=== PATIENT | female | born 1965 | race Caucasian/White ===

== ENCOUNTER → 2020-06-28 10:58 | Outpatient (BNVA) | payer MEDICAID, SELFPAY | PROVIDERS: PCP Student in an Organized Health Care Education/Training Program; Visit Provider Physician Assistant | DX: Z13.89 Encounter for screening for other disorder (principal) | CPT/HCPCS: Q3014 ==

== ENCOUNTER 2020-09-24 10:23 | Day surgery (SDC) | payer OTHER, SELFPAY ==
--- NOTE | 2020-09-21 08:36 | P.CONAN_ITS ---
Documented by User: Macy Guidry 09/21/20 08:37 HPI - Anesthesia Eval Consult details Narrative: 55yo F for Colonoscopy Pulmonary cleared - No exacerbations or prednisone use since April as of 07/2020 O2 dependant PMFSH Active Problems Active Problems: All Active Problems (Updated 07/23/20 @ 09:01 by Macy Guidry) Hematuria (Acute) Abdominal pain (Acute) Past Medical History Medical History Abdominal pain Anxiety and depression Emphysema lung Hx-TIA (transient ischemic attack) Lung cancer Memory deficit Oxygen dependent Family History Family History Mother Heart disease Paternal Grandfather Brain cancer Paternal Grandmother Stomach cancer Father Emphysema lung Surgical History Surgical History H/O tubal ligation History of bronchoscopy Social History Social History Household Members: Significant Other Are you a primary healthcare architect to a significant other at home: No Do you presently have visiting nurse or other home services: No Alcohol intake: current Alcohol intake frequency: holidays/special occasions only Alcohol type: hard liquor Patient Tobacco Use Status: Former Tobacco user Quit Date: 2019 Use of substances other than those prescribed or required for medical reasons: No Are you DNR?: No Advance Directives: No Advance Directives Information Provided: Yes Current occupational status: disabled Meds Allergies Allergy/AdvReac Type Severity Reaction Status Date / Time bupropion [From Wellbutrin] Allergy Severe Rash and Verified 09/24/20 11:09 swelling Home Medications Medication Instructions Recorded Confirmed Last Taken Type fluticasone furoate 200 1 inh INHALATION DAILY 06/28/20 07/18/20 09/24/20 08:30 History mcg-vilanterol 25 mcg/dose inhalation powder hydroxyzine HCl 25 mg tablet 25 mg PO Q4H tab 06/28/20 07/18/20 Unknown History tiotropium bromide 18 mcg capsule 1 cap INHALATION DAILY 06/28/20 07/18/20 Unknown History with inhalation device albuterol sulfate 2 puff INHALATION Q4-6H PRN 07/18/20 07/18/20 Unknown History loratadine 1 tab PO DAILY 07/18/20 07/18/20 Unknown History sertraline 1 tab PO DAILY 07/18/20 07/18/20 Unknown History varenicline [Chantix Starting 1 tab PO DIRECTED 07/18/20 07/18/20 Unknown History Month Box] Exam Exam Date and Time: September 21, 2020 0836 Assessment and Plan Assessment Anesthesia Assessment: Chart Reviewed Documented by User: Christina Meyer 09/24/20 11:53 [facility] Past Medical History Medical History Abdominal pain Anxiety and depression Emphysema lung Hx-TIA (transient ischemic attack) Lung cancer Memory deficit Oxygen dependent Family History Family History Mother Heart disease Paternal Grandfather Brain cancer Paternal Grandmother Stomach cancer Father Emphysema lung Surgical History Surgical History H/O tubal ligation History of bronchoscopy Social History Social History Household Members: Significant Other Are you a primary healthcare architect to a significant other at home: No Do you presently have visiting nurse or other home services: No Alcohol intake: current Alcohol intake frequency: holidays/special occasions only Alcohol type: hard liquor Patient Tobacco Use Status: Former Tobacco user Quit Date: 2019 Use of substances other than those prescribed or required for medical reasons: No Are you DNR?: No Advance Directives: No Advance Directives Information Provided: Yes Current occupational status: disabled Meds Allergies Allergy/AdvReac Type Severity Reaction Status Date / Time bupropion [From Wellbutrin] Allergy Severe Rash and Verified 09/24/20 11:09 swelling Home Medications Medication Instructions Recorded Confirmed Last Taken Type fluticasone furoate 200 1 inh INHALATION DAILY 06/28/20 07/18/20 09/24/20 08:30 History mcg-vilanterol 25 mcg/dose inhalation powder hydroxyzine HCl 25 mg tablet 25 mg PO Q4H tab 06/28/20 07/18/20 Unknown History tiotropium bromide 18 mcg capsule 1 cap INHALATION DAILY 06/28/20 07/18/20 Unknown History with inhalation device albuterol sulfate 2 puff INHALATION Q4-6H PRN 07/18/20 07/18/20 Unknown History loratadine 1 tab PO DAILY 07/18/20 07/18/20 Unknown History sertraline 1 tab PO DAILY 07/18/20 07/18/20 Unknown History varenicline [Chantix Starting 1 tab PO DIRECTED 07/18/20 07/18/20 Unknown History Month Box] Exam Airway Mallampati Class: II TM Dist: >3cm Neck ROM: Full Heart: RRR Lungs: diminished thriughout Assessment and Plan Assessment Anesthesia Assessment: Anesthesia Plan Discussed and Chart Reviewed Final Anesthetic Review NPO: Yes ASA Class: III Final Preanesthetic Review: Meds/Allgs Chart Reviewed, Consent Obtained/Reviewed and Anes Risks/Benef Reviewed Patient Risk: Intermediate Procedure Risk: Low Anesthetic Plan Anesthetic Plan: MAC: Disposition: Standard PACU
[2020-09-24 10:41] VITALS: BP 107/38; PULSE 80; RESP 20; TEMP 36.5; O2SAT 95; BMI 21.6
[2020-09-24] MEDS: Lactated Ringers 1,000 ML 100 ML IVCONT (11:10)
--- NOTE | 2020-09-24 11:51 | W.PM.OPN ---
Operative Note Operative Note Date of Service: 09/24/20 Narrative: Pre-op diagnosis: Colon cancer screening, GERD, abdominal pain Post-op diagnosis: other (GERD, Gastritis, gastric polyp, diverticulosis) Procedure: FLEXIBLE TRANSORAL UPPER GASTROINTESTINAL ENDOSCOPY WITH BIOPSIES AND COLONOSCOPY TILL CECUM WITH BIOPSIES UPPER ENDOSCOPY Consent: Indications for the procedure and potential complications of bleeding, perforation, reaction to medications and missed diagnosis were discussed with the patient and informed consent was obtained. Instrument: Olympus GIF H 190 mid size upper endoscope Monitoring: Vital signs and clinical assessment, continuous EKG monitoring, Pulse oximetry, Carbon Dioxide monitoring and blood pressure monitoring were done throughout the procedure. Procedure: The patient was placed in the left lateral decubitis position and pre-procedure medications were administered and a bite block was placed. The endoscope was inserted into the mouth and advanced under direct vision to the third part of duodenum. A careful inspection was made as the upper endoscope was withdrawn including a retroflexed examination of the proximal stomach; Findings and interventions are described below. Findings: Larynx: Normal Esophagus: GE junction at 40 cms. Minimal focal esophagitis at GE junction. A 1 cms tongue of suspected Merida's - biopsied. Stomach: A few 4-5 mm benign appearing polyps in the gastric fundus - one removed with cold bx. Mild gastric erythema. Biopsies were obtained. Grade 2 flap valve on retroflexed examination of the cardia. Duodenum: Normal bulb and descending duodenum. Biopsies were obtained from 3rd part duodenum to check of celiac sprue Intervention: Biopsies as noted above COLONOSCOPY PROCEDURE NOTE Consent: Indications for the procedure and potential complications of bleeding, perforation, reaction to medications and missed diagnosis were discussed with the patient and informed consent was obtained. Instrument: Olympus PCF H 190 L variable stiffness pediatric colonoscope Monitoring: Vital signs and clinical assessment, intermittent blood pressure monitoring, continuous EKG monitoring, Pulse oximetry and Carbon Dioxide monitoring were done throughout the procedure. Colon withdrawl time was 18 minutes. Procedure: The patient was placed in the left lateral decubitis position and pre-procedure medications were administered. After a digital rectal examination of the ano-rectum, the video colonoscope was inserted into the rectum and advanced through the colon to the cecum. The colonoscope was slowly withdrawn in a retrograde panoramic fashion and the colon mucosa was carefully examined including a retroflexed view of the rectum. Findings and interventions are described below. Procedure Difficulty: : Without difficulty Findings: Terminal Ileum: Not evaluated Cecum: Normal Ascending Colon: Normal Transverse Colon: Normal Descending Colon: Normal Sigmoid Colon: Moderate diverticulosis Rectum: Normal Ano-rectum: Normal Colon preparation: Good after some irrigation Impression and Post Procedure Diagnosis: Endoscopy Findings: ESOPHAGUS: Minimal focal esophagitis at GE junction. A 1 cms tongue of suspected Merida's - biopsied. STOMACH: Benign appearing gastric polyps, gastritis DUODENUM: Normal - biopsied to check for celiac sprue Colonoscopy Findings: No polyps were detected. Random biopsies were obtained from the colon. Moderate diverticulosis seen in the sigmoid colon Plan: Await pathology results Patient has an appointment on 10[facility]09/20in the [facility] with MARYCHUY Jones. Repeat Colonoscopy in 10 years if colon biopsies are normal. Above findings were reviewed with the patient and Gastritis and diverticulosis handouts were given in the discharge area Surgeon: Apolinar Modi MD Anesthesia: MAC (Rebecca Craig CRNA & Dr Meyer) Was an Electrician Aircraft used for this Procedure?: No Electrician Aircraft: Mick Ruano Estimated blood loss (mL): 0 Pathology: other (A. Small bowel, B. Gastric antrum, C. Gastric polyp, D distal esophagus, E. Random colon bx) Condition: stable Disposition: PACU
--- NOTE | 2020-09-24 11:51 | MHC.SHP ---
Pre-Procedural Eval Section A The patient is an INPATIENT: No The History & Physical has been completed within 30 days and I have reviewed it.: No Section B Chief Complaint: Abdominal pain Relevant Social History: Tobacco Use (past smoker) Present Medications: see Short Stay Collaborative assessment Medical History: Significant History (Abdominal pain, GERD, emphysema, ) History of Previous Operations: Relevant previous surgery/procedure and date(s) (H/O tubal ligation History of bronchoscopy) Allergies: Allergies Allergy/AdvReac Type Severity Reaction Status Date / Time bupropion [From Wellbutrin] Allergy Severe Rash and Verified 09/24/20 11:09 swelling Review of Systems Sugical H&P ROS: Negative: Constitution, Cardiovascular and Respiratory and Yes, Specify: Gastrointestinal (GERD, abdominal pain) Exam Surgical H&P Exam: Normal: Heart, Normal: Lungs, Normal: Extremities and Normal: Abdomen Plan Diagnosis/Plan: Unchanged I have reviewed the history and physical and performed a pertinent physical examination on my patient. No changes have occurred unless specified.
[2020-09-24 12:55] VITALS: BP 88/42; PULSE 59; RESP 15; TEMP 36.2; O2SAT 99
[2020-09-24 13:10] VITALS: BP 97/51; PULSE 72; RESP 16; O2SAT 99
[2020-09-24 13:16] VITALS: TEMP 36.4
== END 2020-09-24 14:00 | disposition home or self-care (01) ==
PROVIDERS: PCP Student in an Organized Health Care Education/Training Program; Visit Provider Internal Medicine Gastroenterology
PROC: 0DJD8ZZ Inspection of Lower Intestinal Tract, Via Natural or Artificial Opening Endoscopic (ICD-10-PCS; CPT 45378; principal; 2020-09-24 11:40)
DX: Z12.11 Encounter for screening for malignant neoplasm of colon (principal); K57.30 Diverticulosis of large intestine without perforation or abscess without bleeding; K31.7 Polyp of stomach and duodenum; K20.80 Other esophagitis without bleeding; K29.50 Unspecified chronic gastritis without bleeding; K21.9 Gastro-esophageal reflux disease without esophagitis; C34.90 Malignant neoplasm of unspecified part of unspecified bronchus or lung; J43.9 Emphysema, unspecified; I69.811 Memory deficit following other cerebrovascular disease; Z99.81 Dependence on supplemental oxygen; Z79.51 Long term (current) use of inhaled steroids; F32.9 Major depressive disorder, single episode, unspecified; Z87.891 Personal history of nicotine dependence; Z88.8 Allergy status to other drugs, medicaments and biological substances; Z79.899 Other long term (current) drug therapy
CPT/HCPCS: 45380; 43239; 88305; 88342; J2370

== ENCOUNTER → 2020-10-09 10:01 | Outpatient (BNVA) | payer OTHER, SELFPAY | PROVIDERS: PCP Student in an Organized Health Care Education/Training Program; Visit Provider Physician Assistant | CPT/HCPCS: Q3014 ==

== ENCOUNTER → 2020-12-11 08:38 | Outpatient (BNVA) | payer OTHER, SELFPAY | PROVIDERS: Visit Provider Physician Assistant | CPT/HCPCS: Q3014 ==